=== PATIENT | female | born 1995 | race African-American/Black ===

== ENCOUNTER 2024-07-01 09:58 | Outpatient (REF) | payer OTHER, SELFPAY | END 2024-07-01 09:59 | disposition home or self-care (01) | LOC: HO.HOSX 09:58 | PROVIDERS: Visit Provider Physician Assistant | DX: Z13.89 Encounter for screening for other disorder (principal) ==

== ENCOUNTER 2024-07-01 14:17 | Outpatient (AMB) | payer OTHER, SELFPAY ==
--- NOTE | 2024-07-01 14:18 | MHC.OFFVIS ---
Vital Signs 07/01/24 14:20 Height 5 ft 1 in Weight 180 lb BMI 34.0 Intake Visit Reasons: bilateral leg weakness Intake Note: Ms. Cruz is a 29-year-old female who presents with complaints of intermittent weakness in both of her knees. She did undergo left knee ACL reconstructive surgery in 2019 while living in [place]. The patient states that she tore her ACL while playing soccer. The patient denies any locking or giving way. The patient states that because of COVID she was not able to properly rehab her knee after her surgery. The patient states that because of her left knee weakness she has been using her right knee more which has created right knee weakness as well. She denies any significant discomfort. She denies any fevers or chills. Allergies No Known Allergies Allergy (Verified 07/01/24 14:21) Physical Exam Vital Signs: BMI result Body Mass Index 34.0 Const Other: Well-nourished well-developed very friendly female awake alert and oriented x3 in no acute distress Extrem Other: Bilateral lower extremity examination shows good capillary refill, no skin lesions noted, normal sensation light touch Left knee examination shows minimal discomfort with range of motion, full range of motion when compared to her right knee, no joint line tenderness, no instability, 4+ out of 5 strength with quadriceps testing Assessment & Plan Assessment & Plan (1) Bilateral leg weakness: Code(s): R29.898 - Other symptoms and signs involving the musculoskeletal system Category: Medical Plan Ms. Cruz presents with bilateral leg and knee weakness most likely due to disuse and muscle atrophy. I had a lengthy discussion with the patient regarding the treatment options. I did give her a prescription to go to formal physical therapy here at [facility]. The patient will follow-up as instructed. She will follow up with me on an as-needed basis should her symptoms not plateau at an unacceptable level over the next few months. I spent 22 minutes in reviewing the patient's records and imaging studies, seeing the patient and documenting in the medical record. Orders: Orders XR knee LT 3V Today M25.562 - Pain in left knee XR knee RT 3V Today M17.11 - Unilateral primary osteoarthritis, right knee PT Evaluation and Treatment Today R29.898 - Other symptoms and signs involving the musculoskeletal system Coding Level of Care Code New Pt Level 3 (31270) Complex EM visit Add On G2211 Diagnoses Bilateral leg weakness R29.898
[2024-07-01 14:20] VITALS: BMI 34.0
== END 2024-07-01 14:37 | disposition home or self-care (01) ==
PROVIDERS: Visit Provider Orthopaedic Surgery
DX: R29.898 Other symptoms and signs involving the musculoskeletal system (principal)
CPT/HCPCS: 99203